=== PATIENT | female | born 1960 | race African-American/Black ===

== ENCOUNTER 2019-05-01 06:14 | Day surgery (SDC) | payer OTHER, BC ==
[2019-04-23 14:12] VITALS: BMI 37.8
[2019-05-01] MEDS ORDERED: DEXAMETHASONE SOD PHOSPHATE 4 MG/1 ML VIAL ONE (07:14)
[2019-05-01] MEDS ORDERED: BUPIVACAINE HCL/PF 2.5 MG/ML - 30 ML VIAL IJ ONE (07:15)
[2019-05-01] MEDS ORDERED: LIDOCAINE HCL 2% (20ML MULTI-DOSE VIAL) ONE (07:15)
[2019-05-01] MEDS ORDERED: MIDAZOLAM HCL 2 MG/2 ML SINGLE DOSE VIAL ONE ×2 (07:26→08:04)
[2019-05-01] MEDS ORDERED: SUCCINYLCHOLINE CHLORIDE 200 MG/10 ML SYRINGE ONE (07:26)
[2019-05-01] MEDS ORDERED: PROPOFOL 20 ML ONE ×2 (07:26→08:18)
[2019-05-01] MEDS ORDERED: ceFAZolin SODIUM 1 GM VIAL ONE (07:59)
[2019-05-01 11:25] VITALS: BP 110/66; PULSE 78; TEMP 98.2
--- NOTE | 2019-05-03 09:43 | OP ---
DATE OF OPERATION: 05/01/2019 SURGEON: Cyrus Epperson MD. VACCINE KEY CUSTOMER LEADER: Gabrielle Dixon DPM. PREOPERATIVE DIAGNOSIS: Left foot painful plantar fibroma, painful lipoma, and hyperpigmented neoplasm. POSTOPERATIVE DIAGNOSIS: Left foot painful plantar fibroma, painful lipoma, and hyperpigmented neoplasm. ANESTHESIA: MAC with local. HEMOSTASIS: Ankle tourniquet set to 250 mmHg. ESTIMATED BLOOD LOSS: Less than 2. DESCRIPTION OF PROCEDURE: After proper verbal and written consent was obtained, the patient was brought into the operating room and placed in a supine position on the operating room table. After adequate IV sedation administered by anesthesia team, a local infiltrate block was administered to the left foot utilizing 1 to 1 mix of 1% lidocaine plain and 0.5% Marcaine plain with a total of 20 mL used. The left foot was then prepped and draped in the usual sterile technique. The ankles of the surgical foot was then padded with Webril and an ankle tourniquet was placed overlying. Exsanguination of the left foot with an Esmarch bandage was performed. Thereafter, the ankle tourniquet was inflated to 250 mmHg. Attention was then directed to the plantar aspect of the left mid foot where a curved incision was made overlying the palpable soft tissue masses along the medial plantar aspect using a 15-blade. Sharp and blunt dissection was continued to fully excise the masses in toto noted to be within the plantar fascia. Care was taken to avoid any adjacent neurovascular structures. A partial plantar fasciectomy was performed, and simultaneous removal of said soft tissue mass. Upon further evaluation, the soft tissue mass was noted to resemble a plantar fibroma. Upon further evaluation and continued blunt dissection, another mass resembling a lipoma was identified, and care was taken to excise said mass in toto. Care was taken to avoid any adjacent neurovascular structures. A Bovie electrocautery was then utilized to cauterize the deep layer of subcutaneous tissue from where the mass was excised. The adjacent skin was noted to have a hyperpigmented, suspicious lesion along the incision line just distal. A sharp excisional biopsy was performed and passed from the operating table, and all masses and said lesions were subsequently sent to pathology for further workup. The surgical site was then copiously irrigated with normal saline. The deep subcutaneous tissue was reapproximated using 3-0 Vicryl sutures. The skin was then reapproximated using 4-0 nylon sutures utilizing a horizontal mattress suture technique. The incision site was then cleansed with Betadine, dressed with Xeroform, and covered with sterile lightly compressive dressing consisting of 4x4s, ABD pads, Marc, and Fidel wrap. The pneumatic ankle tourniquet was subsequently deflated, and a prompt hyperemic response was noted in all 5 digits of the left foot. No dressing. The patient tolerated the procedure and anesthesia well. The patient left the operating room with the anesthesia team and was transferred to the PACU recovery room in good condition with vital signs stable and neurovascular status intact. Capillary refill time was less than 3 seconds to all digits of the left foot. Gabrielle Dixon DPM, dictating for Cyrus Epperson MD. DANITZA ASHTON/[id number]
--- NOTE | 2019-05-07 15:24 | PATH ---
Surgical Pathology Report Patient Name: INGE KAUFMAN [facility]. Rec. #: [id number] /Age/Gender: 1960 (Age: 58) / F Account: [id number] Location: [facility] AMBUL[facility]ORY Taken: 05/01/2019 Received: 05/01/2019 Reported: 05/07/2019 Physicians: Cyrus Epperson M.D. Specimen(s) Received A: FIBROMAS LEFT FOOT B: LIPOMA LEFT FOOT C: LESION LEFT FOOT R/O MELANOMA Clinical History Plantar fibroma left foot Final Diagnosis A. LEFT FOOT ,FIBROMAS, EXCISION: PLANTAR FIBROMATOSIS. B. FOOT, LEFT, LIPOMA, EXCISION: LIPOMA. C. FOOT, LEFT, LESION, EXCISION: SIMPLE LENTIGO. Comment: No evidence of malignancy. Electronically Signed Tamara Dugan M.D. Gross Description A. Received in formalin labeled "fibromas left foot," is a 3.3 x 0.9 x 0.6 cm nevarez-yellow portion of fibrous tissue. The specimen is bisected and entirely submitted in one cassette. B. Received in formalin labeled "lipoma left foot," is a 2.3 x 1.3 x 0.3 cm aggregate of yellow, lobulated adipose tissue. The specimen is entirely submitted in one cassette. C. Received in formalin labeled "lesion left foot," is a 0.9 x 0.3 cm nevarez, elliptical, unoriented portion of skin excised to depth of 0.2 cm. The specimen displays a focal epidermal lesion measuring 0.4 x 0.2 cm, focally abutting the radial margin. The specimen is trisected and entirely submitted in one cassette. DL/05/03/2019 saudi05/03/2019
== END 2019-05-01 10:15 | disposition home or self-care (01) ==
LOC: FASU 06:14
PROVIDERS: ATTEND Podiatrist Foot Surgery
PROC: 0JBR0ZZ Excision of Left Foot Subcutaneous Tissue and Fascia, Open Approach (ICD-10-PCS; 2019-05-01)
PROC: 0KNW0ZZ Release Left Foot Muscle, Open Approach (ICD-10-PCS; principal; 2019-05-01 08:07)
DX: M72.2 Plantar fascial fibromatosis (principal); D17.24 Benign lipomatous neoplasm of skin and subcutaneous tissue of left leg; L81.4 Other melanin hyperpigmentation
CPT/HCPCS: 88304-TC; 88305-TC; 94760